=== PATIENT | female | born 1985 | race Two or more races ===

== ENCOUNTER 2025-02-20 08:41 | Emergency (ER) | payer MEDICAID, SELFPAY ==
[2025-02-20 08:42] VITALS: BMI 30.1
[2025-02-20 08:53] VITALS: BP 120/79; PULSE 108; RESP 20; TEMP 37.1; O2SAT 100
--- NOTE | 2025-02-20 09:23 | EDNOTE_ITS ---
ED Animal Bite RME/HPI General Chief Complaint: Animal Bite Stated Complaint: BITE ON THE BACK OF L) LEG X 3 DAYS, PAIN 9/10 Time Seen by Provider: 02/20/25 08:50 Arrival date/time: 02/20/25 08:41 This is a 39-year-old female that comes into the emergency room with complaints of possible abscess to her left lateral upper leg. Patient states it started about 3 days ago. Patient states she was trying to open it up and caused some trauma around there. Patient states it has been draining. Patient denies any past medical history. Patient denies any fever or chills. Related Data Previous Rx's ?Medication ?Instructions ?Recorded cephalexin 500 mg capsule 500 mg PO Q12H #20 caps 02/09 01/30 doxycycline hyclate 100 mg capsule 100 mg PO BID #14 c aps 03/02/23 ibuprofen 800 mg tablet 800 mg PO TID PRN pain #30 t abs 08/20/23 ibuprofen 800 mg tablet 800 mg PO Q6H PRN pain #14 t abs 02/20/25 Allergies Allergy/AdvReac Type Severity Reaction Status Date / Time Sulfa (Sulfonamide Allergy Verified 02/20/25 08:46 Antibiotics) Review of Systems Review of Systems Systems Reviewed: All systems reviewed, normal except as documented Past Medical History Past Medical History CARDIAC: Negative Congestive Heart Failure RESPIRATORY: Negative Chronic Obstructive Pulmonary Disease (COPD) GENITOURINARY: Negative Renal Disease ENDOCRINE: Negative Diabetes Mellitus Type 1 or Diabetes Mellitus Type 2 Surgical History SURGICAL: Positive Section Social History SMOKING STATUS: Never smoker SUBSTANCE USE: methamphetamine ED Exam General General appearance: Present alert and in no apparent distress Head Head exam: Present atraumatic Eye Eye exam: Present normal appearance, PERRL and EOMI ENT ENT exam: Present normal exam, normal oropharynx and mucous membranes moist Neck Neck exam: Present normal inspection, full ROM and trachea midline Chest Chest inspection: Present normal inspection and symmetric chest wall rise Respiratory Respiratory exam: Present normal lung sounds bilaterally Cardiovascular Cardiovascular exam: Present regular rate, normal rhythm and normal heart sounds Abdominal Exam Abdominal exam: Present soft Extremities Exam Extremities exam: Present normal inspection and full ROM Back Exam Back exam: Present normal inspection and full ROM Neurological Exam Neurological exam: Present alert, oriented X3 and CN II-XII intact Psychiatric Psychiatric exam: Present normal affect and normal mood Skin Skin exam: Present warm, dry and other (erythema with skin induration to left lateral upper leg) Course Quality Measures none Orders Category Date Time Status Clindamycin Vial [Cleocin vial] Med 02/20/25 09:22 Discontinued 600 mg IM X1 ONE HYDROcodone*/APAP 5/325 [[place] 5/325] Med 02/20/25 09:22 Discontinued 1 tab PO X1 ONE Ibuprofen Tab [Motrin Tab] Med 02/20/25 09:22 Discontinued 800 mg PO X1 ONE Vital Signs Vital signs: Vital Signs Temperature 98.8 F 02/20/25 08:53 Pulse Rate 108 H 02/20/25 08:53 Respiratory Rate 20 02/20/25 08:53 Blood Pressure 120/79 02/20/25 08:53 Pulse Oximetry (%) 100 02/20/25 08:53 Oxygen Delivery Method Room Air 02/20/25 08:53 Animal Bite MDM Narrative MDM Narrative:: I spoke to patient at length. Patient does not want I&D at this time. She wants to see if it continues to drain on its own. I we will give patient a dose of clindamycin IM and start patient on clindamycin by mouth. I told patient she will need to come back to the emergency room for a wound check tomorrow or 02/21/25 unless she is able to get an appointment with her primary provider at that time. I explained the importance of follow-up with patient I explained the importance of taking antibiotics as prescribed. I instructed patient to use warm compresses every 4 hours. Patient data External records reviewed:: [facility] previous records Clinical information provided by:: patient Social determinants that could affect healthcare access:: none Patient has the following chronic illnesses:: none How is presenting disease/condition affected by chronic disease/condition?: no chronic disease Evaluation data The following diagnostics were reviewed and interpreted by me:: other (specify) (none ) Lab and/or radiology exams considered but not ordered:: none Interpretation Summary: see note Medications / Prescriptions Medications or Prescriptions considered but not ordered:: none Medication administrations:: Medication Administration History Discontinued Medications Hydrocodone Bitart/Acetaminophen (Hydrocodone/Apap 5/325 Tablet) 1 tab PO X1 ONE Stop: 02/20/25 09:23 Last Admin: 02/20/25 09:49 Dose: 1 tab Documented By: ER Clindamycin Phosphate (Clindamycin Phos Inj 150 Mg/Ml Vial 6 Ml) 600 mg IM X1 ONE Stop: 02/20/25 09:23 Last Admin: 02/20/25 09:50 Dose: 600 mg Documented By: ER Ibuprofen (Ibuprofen Tab 400 Mg Tablet) 800 mg PO X1 ONE Stop: 02/20/25 09:23 Last Admin: 02/20/25 09:50 Dose: 800 mg Documented By: ER see mar Consultations Consultation(s) initiated? (list below): No Diagnosis Most likely diagnosis given after review of the tests above:: early abscess Admission Indicated Admission indicated?: not indicated Admission Request Was there a request for admission?: No Disposition Plan Disposition Plan: Discharge Discharge Attestation Discharge Attestation: The patient and all family members were given an opportunity to ask questions and understood the discharge instructions. Discharge instructions specifically effects, indications for sooner follow up or return to the emergency department, and the expected course of current diagnosis. Patient condition: Stable Discharge Plan Plan Patient Disposition: HOME (Self Care) Patient condition on transfer: Stable Prescriptions/Referrals Prescriptions/Med Rec: New ibuprofen 800 mg tablet 800 mg PO Q6H PRN (Reason: pain) Qty: 14 0RF No Action doxycycline hyclate 100 mg capsule 100 mg PO BID Qty: 14 0RF cephalexin 500 mg capsule 500 mg PO Q12H Qty: 20 0RF ibuprofen 800 mg tablet 800 mg PO TID PRN (Reason: pain) Qty: 30 0RF Problem List Clinical Impression: Abscess of left leg Patient/Caregiver Discharge Instructions Discharge Activity: activity as tolerated Education Materials: ED Abscess Antibiotic ... Additional Instructions: Please use warm compresses every 4 hours to affected area. Come back to the emergency room in 1 to 2 days for a wound check or can see primary provider in 1 to 2 days for wound check. Come back to the emergency room if symptoms change or worsen. Print Language: Tajik Stand Alone Forms: Joceline Award Info., Patient Portal Info Letter PA/EDUARD Supervising Physician PA/EDUARD Supervising Physician: onel
[2025-02-20] MEDS: HYDROcodone/APAP 5/325 TABLET 1 TAB PO (09:49)
[2025-02-20] MEDS: CLINDAMYCIN PHOS INJ 150 MG/ML VIAL 6 ML 600 MG IM (09:50)
[2025-02-20] MEDS: IBUPROFEN TAB 400 MG TABLET 800 MG PO (09:50)
== END 2025-02-20 10:13 | disposition home or self-care (01) ==
LOC: SERX 09:41
PROVIDERS: Emergency Provider Emergency Medicine; PCP Nurse Practitioner Family
DX: L02.416 Cutaneous abscess of left lower limb (principal)
CPT/HCPCS: 96372; 99283; J0736; A9270